=== PATIENT | male | born 1950 | race American Indian/Alaskan Native ===

== ENCOUNTER 2022-05-03 06:46 | Day surgery (SDC) | payer MEDICARE ==
[2022-05-01 10:40] LABS: Hematocrit 34.3 % (35.5-45.6); Hemoglobin 11.5 gm/dl (11.8-15.2); Mean Corpuscular HGB Conc 34 % (32-34); Mean Corpuscular Volume 86 fl (84-94); Platelet Count 190 K/mm3 (140-440); Red Blood Count 3.99 M/mm3 (3.65-5.03); Red Cell Distribution Width 17.1 % (13.2-15.2)
[2022-05-01 10:57] LABS: Alanine Aminotransferase 16 units/L (7-56); Albumin 3.7 g/dL (3.9-5); BUN/Creatinine Ratio 12; Blood Urea Nitrogen 12 mg/dL (9-20); Hemolysis Index 4
[2022-05-03] MEDS ORDERED: LACTATED RINGERS 1,000 ML ONE (07:13)
--- NOTE | 2022-05-03 07:46 | Anesthesia Consultation ---
Anesthesia Consult and Med Hx Date of service: 05/03/22 - Airway Anesthetic Teeth Evaluation: Edentulous ROM Head & Neck: Adequate Mental/Hyoid Distance: Adequate Mallampati Class: Class I Intubation Access Assessment: Probably Good - Pulmonary Exam CTA: Yes - Cardiac Exam Cardiac Exam: RRR - Pre-Operative Health Status ASA Pre-Surgery Classification: ASA2, ASA3 Proposed Anesthetic Plan: General - Pulmonary Hx Smoking: No Hx Sleep Apnea: No (JENSEN PRE SCREEN HIGH RISK) - Cardiovascular System Hx Hypertension: Yes (2016; took medications this morning. 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 ) Hx Psychiatric Problems: No - Endocrine Hx Renal Disease: No Hx Liver Disease: No Hx Insulin Dependent Diabetes: No Hx Non-Insulin Dependent Diabetes: No - Hematic Hx Anemia: No - Other Systems Hx Substance Use: No Hx Obesity: No - Additional Comments Anesthesia Medical History Comments: No GAC. Non FHAC.
--- NOTE | 2022-05-03 07:47 | Anesthesia Day of Surgery ---
Anesthesia Day of Surgery - Day of Surgery Patient Examined: Yes Patient H&P Reviewed: Yes Patient is NPO: Yes
[2022-05-03] MEDS ORDERED: LIDOCAINE MPF (2%) 20 MG/1 ML VIAL 5 ML ONE (07:54)
[2022-05-03] MEDS ORDERED: dexAMETHasone 20 MG/5 ML VIAL ONE (07:54)
[2022-05-03] MEDS ORDERED: HYDROmorphone 0.5 MG/0.5 ML INJ ONE (07:54)
[2022-05-03] MEDS ORDERED: ONDANSETRON 4 MG/2 ML INJ ONE (07:54)
[2022-05-03] MEDS ORDERED: propofoL 200 MG/20 ML VIAL IV ONE (07:56)
[2022-05-03] MEDS ORDERED: ceFAZolin/Water 2 GM/20 ML 2 GM/20 ML SYRINGE IV ONE (08:04)
[2022-05-03] MEDS ORDERED: ceFAZolin/STERILE WATER 2 GM/20 ML SYRINGE IV NR (09:00)
[2022-05-03] MEDS ORDERED: HYDROmorphone 0.5 MG/0.5 ML INJ IV PRN ×2 (09:08)
[2022-05-03] MEDS ORDERED: LACTATED RINGERS 1,000 ML IV SCH (10:00)
[2022-05-03] MEDS ORDERED: ONDANSETRON 4 MG/2 ML INJ IV PRN (10:00)
[2022-05-03] MEDS ORDERED: WATER FOR IRRIG STERILE 2000 ML IR ONE (10:00)
--- NOTE | 2022-05-03 10:07 | Short Stay Summary ---
Short Stay Documentation Date of service: 05/03/22 - History H&P: obtained from office - Allergies and Medications Current Medications: Allergies Tetanus Vaccines and Toxoid [Tetanus Vaccines & Toxoid] Allergy (Verified 12/31/15 12:00) Swelling Home Medications Medication Instructions Recorded Confirmed Last Taken Type Aspirin [Yancey Aspirin EC] 81 mg PO DAILY 05/01/22 05/01/22 Unknown History Atorvastatin [Lipitor Tab] 80 mg PO QHS 05/01/22 05/01/22 Unknown History Losartan [Cozaar] 100 mg PO QDAY 05/01/22 05/01/22 Unknown History Tamsulosin [Flomax] 0.4 mg PO QDAY 05/01/22 05/01/22 Unknown History amLODIPine [Norvasc] 10 mg PO DAILY 05/01/22 05/01/22 Unknown History Active Medications Cefazolin Sodium (Cefazolin/Sterile Water 2 Gm/20 Ml Syringe) 2 gm IV PREOP NR Stop: 05/03/22 13:00 Hydromorphone HCl (Hydromorphone 0.5 Mg/0.5 Ml Inj) 0.25 mg IV Q10MIN PRN PRN Reason: Pain, Moderate (4-6) Hydromorphone HCl (Hydromorphone 0.5 Mg/0.5 Ml Inj) 0.5 mg IV Q10MIN PRN PRN Reason: Pain , Severe (7-10) Lactated Ringer's (Lactated Ringers) 1,000 mls @ 125 mls/hr IV DIRECT [place] Ondansetron HCl (Ondansetron 4 Mg/2 Ml Inj) 4 mg IV ONCE PRN PRN Reason: Nausea And Vomiting Stop: 05/03/22 23:59 - Brief post op/procedure progress note Date of procedure: 05/03/22 Pre-op diagnosis: bph, elevated psa Post-op diagnosis: same Procedure: cysto, rpg, pus 20cc, bx prostate Anesthesia: GETA Surgeon: JAILENE PAYTON Pathology: list Specimen disposition: to lab (prostate) Condition: stable - Hospital course Hospital course: bactrim & norco on chart - Disposition Condition at discharge: Stable Disposition: 01 HOME / SELF CARE / HOMELESS Short Stay Discharge Plan Follow up with: TIKI BUTLER,PIOTR ANTHONY MD [Primary Care Provider] - 7 Days
--- NOTE | 2022-05-03 10:41 | Operative Report ---
DATE OF SURGERY: 05/03/2022 PREOPERATIVE DIAGNOSES: Elevated PSA, benign prostatic hypertrophy. POSTOPERATIVE DIAGNOSES: Elevated PSA, benign prostatic hypertrophy. PROCEDURES: Cystoscopy, bilateral retrograde pyelograms, transrectal ultrasound, biopsy of prostate; ultrasound revealed a 30-gram gland. SURGEON: Ortega Phelan MD. ANESTHESIA: General. ESTIMATED BLOOD LOSS: Minimal. FLUIDS: Crystalloid. COMPLICATIONS: No complications. INDICATIONS: This patient is a 71-year-old gentleman with elevated PSAs, it has been as low as 130 and as high as 386. He has had a biopsy that was negative in the past. Previous CT suggested possible metastasis to the lumbar spine. MRI revealed several lesions and actually a pelvic lymph node. We discussed fusion biopsy versus biopsy under anesthesia. The patient did not want to travel for a fusion biopsy and presents now for intervention. Risks, benefits and complications were explained. DESCRIPTION OF PROCEDURE: The patient was taken to the operative suite and placed in a supine position. After adequate general anesthesia, he was placed in a dorsal lithotomy position, prepped and draped in a sterile fashion. Pancystourethroscopy was performed with a 22-Macanese Storz cystoscope, no urethral abnormalities. His prostate displayed some [id number] trilobar obstruction. In bladder, no tumors or stones were noted. Both ureteral orifices were in normal position. Bilateral retrograde pyelograms were obtained with an 8-Macanese Emmanuel catheter and 8 mL of contrast. No filling defects or obstruction. Next, using a transrectal ultrasound probe, biplanar measurements were taken. There were calcifications in the prostate. No obvious lesion, 30-gram gland. A template biopsy was taken, there were a total of 24 cores. The patient tolerated the procedure well. Rectal exam was benign. He was taken to recovery room in a stable condition. He will go home on Bactrim and [place]. TID: [id number] RECEIPT: [id number] ROBYN/CRISTAL
[2022-05-03 11:24] VITALS: BP 138/62
--- NOTE | 2022-05-03 11:28 | Post Anesthesia Evaluation ---
- Post Anesthesia Evaluation Patient Participated: Yes Airway Patent: Yes Stable Respiratory Function: Yes Nausea/Vomiting: No Temp > 96.8F: Yes Pain Manageable: Yes Adequeate Hydration: Yes Anesthesia Complications: No Block Receding Appropriately: Not Applicable Patient on Ventilator: No
--- NOTE | 2022-05-03 11:29 | Fluoroscopy Report ---
4 fluoroscopic images submitted Indication: Intraoperative localization Impression: 4 images of the abdomen were submitted for documentation purposes with radiology involve ment. Bilateral retrograde pyelograms were performed. Please refer to the operative note for comple te details. Fluoroscopic time: 10 seconds Signer Name: Niles David MD Signed: 05/03/2022 11:25 AM Workstation Name: [id number]
--- NOTE | 2022-05-03 14:04 | Ultrasound Report ---
US guide intraoperative INDICATION / CLINICAL INFORMATION: PROSTATE BX TECHNIQUE: Intraoperative sonographic images were obtained during the procedure. FINDINGS: Intraoperative sonographic images for Dr. Phelan. See operative/procedure note by performing physician for full details. Ultrasound Images: 1. Scribed by: Madeleine Silva RDMS, RVT, JAYLENE Scribed: 05/03/2022 11:25 AM I have reviewed the images, agree with this report, and edited this report as needed. Signer Name: Rene Burgos MD Signed: 05/03/2022 2:00 PM Workstation Name: [id number]
== END 2022-05-03 11:15 | disposition home or self-care (01) ==
LOC: OR 06:46
PROVIDERS: ATTEND Urology
DX: R97.20 Elevated prostate specific antigen [PSA] (principal); N40.0 Benign prostatic hyperplasia without lower urinary tract symptoms; I10 Essential (primary) hypertension; Z85.46 Personal history of malignant neoplasm of prostate; Z87.440 Personal history of urinary (tract) infections; Z98.890 Other specified postprocedural states; Z20.822 Contact with and (suspected) exposure to COVID-19; Z79.899 Other long term (current) drug therapy; Z79.82 Long term (current) use of aspirin; Z86.73 Personal history of transient ischemic attack (TIA), and cerebral infarction without residual deficits
CPT/HCPCS: 36415; 52005; 55700; 74420; 76872; 80053; 82962; 85027; 88305; 88341; 88342; 88344; C1758; J0690; J1100; J1170; J2405; J2704; J7120; Q9967; U0003; 76998